=== PATIENT | female | born 1980 | race Caucasian/White ===

== ENCOUNTER 2016-03-26 13:15 | Emergency (ER) | payer BC ==
[~2016-03-26] VITALS: Ht 165.1 cm; Wt 79.4 kg
[2016-03-26] MEDS ORDERED: ONDANSETRON 4 MG TAB.RAPDIS ONE (13:55)
[2016-03-26] MEDS ORDERED: ACETAMINOPHEN ES 500 MG TABLET ONE (13:55)
[2016-03-26] MEDS ORDERED: ONDANSETRON 4 MG TAB.RAPDIS PO ONE (14:00)
[2016-03-26] MEDS ORDERED: ACETAMINOPHEN 325 MG TABLET PO ONE (14:00)
[2016-03-26 14:08] VITALS: BP 113/70
== END 2016-03-26 14:08 | disposition home or self-care (01) ==
LOC: ER 13:17
DX: S16.1XXA Strain of muscle, fascia and tendon at neck level, initial encounter (principal); V43.52XA Car driver injured in collision with other type car in traffic accident, initial encounter; Y93.89 Activity, other specified; Y92.89 Other specified places as the place of occurrence of the external cause; Y99.9 Unspecified external cause status
CPT/HCPCS: 99283; A4606; Q0162; Z7610